=== PATIENT | male | born 1955 | race Caucasian/White ===

== ENCOUNTER → 2020-01-13 13:44 | Outpatient (CLI) | payer MEDICARE, OTHER, SELFPAY ==
--- NOTE | ~2020-01-13 | XR_ITS ---
XR hip BI 2V w AP pelvis DATE: 01/13/2020 14:08 INDICATION: Right hip pain TECHNIQUE: AP pelvis. Bilateral AP and lateral hip views COMPARISON: None FINDINGS: No pelvic fracture or bone destruction. The pubic symphysis and sacroiliac joints are inta ct. No fracture or dislocation, periosteal reaction or bone destruction. Hip joint spaces are symme tric and relatively preserved. IMPRESSION: Scoliosis and degenerative disc disease of the mid to lower lumbar and lumbosacral spine Reviewed, dictated and finalized at location B.
== END ==
PROVIDERS: Visit Provider Internal Medicine
DX: M25.551 Pain in right hip (principal); M41.86 Other forms of scoliosis, lumbar region; M51.37 Other intervertebral disc degeneration, lumbosacral region
CPT/HCPCS: 73521

== ENCOUNTER → 2020-09-08 10:16 | Outpatient (CLI) | payer MEDICARE, OTHER, SELFPAY ==
--- NOTE | ~2020-09-08 | XR_ITS ---
EXAMINATION: XR hand BI arthritis min 3V EXAM DATE: 09/08/2020 10:33 INDICATION: Bilat Hand Joint Pain With Tightness And Swelling For 3 Months. Worse In Right Hand. TECHNIQUE: Right hand frontal, lateral and oblique projections obtained and reviewed. Left hand fron kamran, lateral and oblique projections obtained and reviewed. Catchers projection of both hands. There is no prior study for comparison. FINDINGS: Right hand: Polyarticular primary osteoarthritis, moderate to severe at the 3rd and 5th distal interp halangeal joints. Moderate 1st digit interphalangeal, MCP and 3rd MCP osteoarthritis. Less osteoarthr itis at the other joints. Mild arteriosclerosis. There are no acute fractures identified. There are n o bony erosions identified. Left hand: Polyarticular primary osteoarthritis, moderate to severe at the 4th and 5th distal interph alangeal joints, moderate at the 1st and 2nd distal interphalangeal joints. Otherwise mild polyarticu lar osteoarthritis. Mild arteriosclerosis. There are no acute fractures identified. There are no ga ny erosions identified. IMPRESSION: 1. Polyarticular osteoarthritis, distal interphalangeal joints most affected. Reviewed, dictated and finalized at location A. E ECONOMIST
== END ==
PROVIDERS: PCP Internal Medicine; Visit Provider Internal Medicine
DX: M19.042 Primary osteoarthritis, left hand (principal); M19.041 Primary osteoarthritis, right hand; M18.0 Bilateral primary osteoarthritis of first carpometacarpal joints
CPT/HCPCS: 73130

== ENCOUNTER → 2021-08-09 10:47 | Outpatient (CLI) | payer MEDICARE, OTHER, SELFPAY ==
--- NOTE | ~2021-08-09 | CT_ITS ---
EXAMINATION: CT abdomen pelvis wo/w con DATE: 08/09/2021 11:28 INDICATION: Unspecified abdominal pain TECHNIQUE: Computed tomography (CT) of the abdomen was performed without intravenous contrast. CT of the abdomen and pelvis was then performed with a total of 100 mL Omnipaque 350 intravenous contrast. The dose-length product (DLP) was 1438.47 mGy-cm. Automated exposure control and iterative reconstruc tion technique were employed. COMPARISON: 06/07/2018 FINDINGS: The lung bases are clear. The heart size is normal. The gallbladder is surgically absent. T here is mild enlargement of the common bile duct and central intrahepatic ducts which is likely due t o post cholecystectomy state. The liver, spleen, pancreas, and adrenal glands are normal. Nonobstruct ing stones of the kidneys measure up to 2 mm. No definite stones are identified in the ureters or zachery dder. There is no hydronephrosis or hydroureter. No pathologically enlarged abdominal or pelvic lymph nodes are identified. There is no free intraperitoneal gas or evidence of bowel obstruction. The martine endix is normal. There is severe lumbar spondylosis. IMPRESSION: 1. Punctate bilateral nephrolithiasis without hydronephrosis or hydroureter. No CT correlate for the patient's symptoms. Reviewed, dictated and finalized at location B. ICE MEMBER
[2021-08-09 11:18] LABS: Estimated Glomerular Filt Rate > 60
== END ==
PROVIDERS: Visit Provider Internal Medicine
DX: R10.9 Unspecified abdominal pain (principal); N20.0 Calculus of kidney
CPT/HCPCS: 74178; Q9967

== ENCOUNTER → 2022-02-15 12:07 | Outpatient (CLI) | payer MEDICARE, OTHER, SELFPAY ==
--- NOTE | ~2022-02-15 | MR_ITS ---
EXAMINATION: MR lumbar spine wo con DATE: 02/15/2022 12:43 INDICATION: Low back pain. TECHNIQUE: Magnetic resonance imaging (MRI) of the lumbar spine was performed without intravenous con trast. Sequences included sagittal T2-weighted FSE, sagittal T2-weighted FS FSE, sagittal T1-weighted FSE, and axial T2-weighted FSE. COMPARISON: Lumbar spine MRI 06/24/17 FINDINGS: There is 11 degrees levoscoliosis of lumbar spine. There is 6 mm anterolisthesis of L4 on L 5 and 3 mm retrolisthesis of L5 on S1. There are Schmorl's nodes at multiple levels. There is mildly decreased disc height at L2-L3, moderately decreased disc height at L3-L4, and severely decreased dis c height at L4-L5 and L5-S1 with endplate remodeling. The distal spinal cord signal intensity is norm al. The conus medullaris is at L1. The following disc levels are specifically discussed: L1-L2: The disc is bulging. There is mild bilateral facet joint osteoarthritis. There is mild bilater al neural foraminal stenosis. There is mild central canal stenosis. L2-L3: The disc is bulging and has an annular fissure. There is mild bilateral facet joint osteoarthr itis. There is moderate bilateral neural foraminal stenosis. There is mild central canal stenosis. L3-L4: The disc is bulging and has an annular fissure. There is mild bilateral facet joint osteoarthr itis. There is moderate right and mild left neural foraminal stenosis. There is mild central canal st enosis. L4-L5: The disc is bulging and has an annular fissure. There is severe bilateral facet joint osteoart hritis. There is moderate right and mild left neural foraminal stenosis. There is moderate central ca nal stenosis. L5-S1: The disc is bulging and has an annular fissure. There is moderate right and severe left facet joint osteoarthritis. There is mild right and moderate left neural foraminal stenosis. There is mild central canal stenosis. IMPRESSION: 1. Severe lumbar spondylosis, stable from 06/24/2017. 2. Lumbar levoscoliosis. Reviewed, dictated and finalized at location A.
== END ==
PROVIDERS: PCP Family Medicine; Visit Provider Family Medicine
DX: M54.50 Low back pain, unspecified (principal); G62.9 Polyneuropathy, unspecified; M43.06 Spondylolysis, lumbar region; M41.86 Other forms of scoliosis, lumbar region
CPT/HCPCS: 72148

== ENCOUNTER 2023-09-26 00:06 | Day surgery (SDC) | payer MEDICARE, SELFPAY ==
[2023-07-13 14:21] VITALS: BMI 28.0
--- NOTE | 2023-09-18 10:22 | PC.NURSE ---
Called and updated patient with new procedure dates and times. Patient denies any questions at this time. Patient denies any changes to health history, medications, or allergies at this time.
[2023-09-26 07:29] VITALS: BP 144/92; PULSE 90; RESP 20; TEMP 36; O2SAT 97
[2023-09-26] MEDS: LACTATED RINGERS 1,000 ML 150 ML IV CONT (07:46)
[2023-09-26 07:47] LABS: Glucose Point of Care 116 mg/dl (65-105)
--- NOTE | 2023-09-26 07:50 | WPDANESEPPF ---
Anes - Initial Pre Proc Eval Procedure: Operation Date: 09/26/23 08:30 Proposed Procedures p Esophagogastroduodenoscopy - John Dotson MD Date/Time: 09/26/23 07:50 Surgeon: John Dotson MD Pre Op Diagnosis: Esophageal thickening Patient Data Age: 68 Gender: M Height: 1.78 m Weight: 92.8 kg Last Vital Signs Temp 96.8 F L 09/26/23 07:29 Pulse 90 09/26/23 07:29 Resp 20 09/26/23 07:29 BP 144/92 H 09/26/23 07:29 Pulse Ox 97 09/26/23 07:29 O2 Del Method Room Air 09/26/23 07:29 Allergies Allergy/AdvReac Type Severity Reaction Status Date / Time lisinopril AdvReac Mild Cough Verified 09/26/23 07:28 erythromycin base AdvReac Gastrointestinal Verified 09/26/23 07:28 Upset Home Medications Medication Instructions Recorded Confirmed Type blood sugar diagnostic (True #100 ea 10/19/20 11/05/21 Rx Metrix Glucose Test Strip) blood-glucose meter (True Metrix #1 ea 10/19/20 11/05/21 Rx Air Glucose Meter kit) lancets 30 gauge (TRUEplus Lancets) #100 ea 10/19/20 11/05/21 Rx losartan 25 mg tablet 25 mg PO DAILY #90 tabs 09/03/21 07/13/23 Rx glipizide 2.5 mg tablet, extended 2.5 mg PO DAILY #90 tabs 11/05/21 07/13/23 Rx release 24 hr hydrochlorothiazide 12.5 mg tablet 12.5 mg PO DAILY #90 tabs 11/05/21 07/13/23 Rx amlodipine 10 mg tablet 10 mg PO DAILY 07/13/23 07/13/23 History atorvastatin 40 mg tablet 40 mg PO DAILY 07/13/23 07/13/23 History duloxetine 30 mg capsule,delayed 30 mg PO HS 07/13/23 07/13/23 History release gabapentin 100 mg capsule 300 mg PO QHS 07/13/23 07/13/23 History Laboratory Tests 09/26/23 07:37 POC Capillary Glucose 116 H mg/dl (65-105) Patient hx anesthesia problems: none Family hx anesthesia problems: none Results Review: All pre-operative results and documents have been reviewed as part of the pre-operative evaluation. [facility] Past Medical History Medical History (Updated 11/05/21 @ 09:36 by Valentin RainMD) COVID-19 vaccine series started Rotator cuff arthropathy of right shoulder Surgical History Surgical History (Updated 11/05/21 @ 09:20 by Valentin RainMD) History of total right knee replacement Family History Family History Mother Family history of heart disease in male family member before age 55 Patient's mother is Hypertension Sibling Hypertension Carcinoma of colon Father Family history of throat cancer Social History Social History Smoking status: Former smoker Tobacco type: cigarettes Second hand tobacco smoke exposure: No Alcohol intake: never Substance use: never Substance use type: does not use Living arrangements: with family Spiritual care concerns: No Anes - Eval Final PreProcedure Day of Procedure 09/26/23 07:50 Patient weight: normal Heart: regular rate and rhythm Lungs: clear to auscultation Airway: Mallampati scale class II Neurological: alert and oriented Last oral intake: >/= 8 hours ASA classification: III Emergent: no Anesthetic plan: proceed Anesthesia type and monitoring: general GIVS and standard monitoring Results Review: All pre-operative results and documents have been reviewed as part of the pre-operative evaluation. Informed Consent: The patient's anesthetic plan and its attendant risks and benefits were discussed with the patient/family/POA. Questions were solicited and answers provided to the satisfaction of the patient/family/POA.
--- NOTE | 2023-09-26 08:25 | PM.HPGS ---
History of Present Illness History of Present Illness Consent: Risks, benefits, and alternatives have been discussed and questions answered. Patient agrees to proceed with procedure. Chief complaint: Esophageal thickening Narrative: Darshan Contreras is a 68 year old male with prostate issues and had recent imaging that showed thickening of esophagus, at times he noted that food will take some time to go down, had EGD but several years ago. Review of Systems Review of Systems: All systems reviewed & are unremarkable except as noted in HPI and below PMFSH Past Medical History Medical History (Updated 09/26/23 @ 08:27 by John Dotson MD) Abnormal CT scan, esophagus COVID-19 vaccine series started Rotator cuff arthropathy of right shoulder Surgical History Surgical History (Updated 11/05/21 @ 09:20 by Valentin RainMD) History of total right knee replacement Family History Family History Mother Family history of heart disease in male family member before age 55 Patient's mother is Hypertension Sibling Hypertension Carcinoma of colon Father Family history of throat cancer Social History Social History Smoking status: Former smoker Tobacco type: cigarettes Second hand tobacco smoke exposure: No Alcohol intake: never Substance use: never Substance use type: does not use Living arrangements: with family Spiritual care concerns: No Meds Home Medications and Allergies Home Medications Medication Instructions Recorded Confirmed Type blood sugar diagnostic (True #100 ea 10/19/20 11/05/21 Rx Metrix Glucose Test Strip) blood-glucose meter (True Metrix #1 ea 10/19/20 11/05/21 Rx Air Glucose Meter kit) lancets 30 gauge (TRUEplus Lancets) #100 ea 10/19/20 11/05/21 Rx losartan 25 mg tablet 25 mg PO DAILY #90 tabs 09/03/21 07/13/23 Rx glipizide 2.5 mg tablet, extended 2.5 mg PO DAILY #90 tabs 11/05/21 07/13/23 Rx release 24 hr hydrochlorothiazide 12.5 mg tablet 12.5 mg PO DAILY #90 tabs 11/05/21 07/13/23 Rx amlodipine 10 mg tablet 10 mg PO DAILY 07/13/23 07/13/23 History atorvastatin 40 mg tablet 40 mg PO DAILY 07/13/23 07/13/23 History duloxetine 30 mg capsule,delayed 30 mg PO HS 07/13/23 07/13/23 History release gabapentin 100 mg capsule 300 mg PO QHS 07/13/23 07/13/23 History Allergies Allergy/AdvReac Type Severity Reaction Status Date / Time lisinopril AdvReac Mild Cough Verified 09/26/23 07:28 erythromycin base AdvReac Gastrointestinal Verified 09/26/23 07:28 Upset Vital Signs Vital Signs - 24 hr 09/26/23 07:29 Temperature 96.8 F L Pulse Rate 90 Respiratory Rate 20 Blood Pressure 144/92 H Pulse Oximetry 97 Oxygen Delivery Room Air Exam Const: General: comfortable and no acute distress HENMT: Face/Nose/Sinus: Normal nares present Eyes: General: appearance normal, both eyes and all related structures Neck: Neck: no JVD Resp: Auscultation: clear to auscultation bilaterally Cardio: Rate: regular rate Rhythm: regular rhythm GI: Inspection: non-distended GI Palp: Yes Soft to palpation Skin: General skin exam: normal color Neuro: General: gait normal Speech: normal speech Extrem: General: normal to inspection Psych: Mental Status: mental status grossly normal Assessment and Plan Assessment and plan (1) Abnormal CT scan, esophagus: Code(s): R93.3 - Abnormal findings on diagnostic imaging of other parts of digestive tract Status: Acute Assessment and Plan: egd
[2023-09-26 08:42] VITALS: BP 115/76; PULSE 83; RESP 21; O2SAT 97
[2023-09-26 08:52] VITALS: BP 128/87; PULSE 78; RESP 17; O2SAT 97
[2023-09-26 09:02] VITALS: BP 141/85; PULSE 74; RESP 18; O2SAT 99
== END 2023-09-26 09:11 | disposition home or self-care (01) ==
PROVIDERS: PCP Family Medicine; Visit Provider Internal Medicine Gastroenterology
PROC: 0DJ08ZZ Inspection of Upper Intestinal Tract, Via Natural or Artificial Opening Endoscopic (ICD-10-PCS; CPT 43235; principal; 2023-09-26 08:30)
DX: R93.3 Abnormal findings on diagnostic imaging of other parts of digestive tract (principal); Z79.84 Long term (current) use of oral hypoglycemic drugs; Z87.891 Personal history of nicotine dependence
CPT/HCPCS: 43235; 82948; J2704; J7120

== ENCOUNTER 2024-05-20 00:16 | Day surgery (SDC) | payer MEDICARE, SELFPAY ==
[2024-05-08 14:34] VITALS: BMI 28.8
[2024-05-20 09:05] VITALS: BP 146/83; PULSE 93; RESP 18; TEMP 36.1; O2SAT 98
[2024-05-20 09:15] LABS: Glucose Point of Care 124 mg/dl (65-105)
[2024-05-20] MEDS: LACTATED RINGERS 1,000 ML 150 ML IV CONT (09:15)
--- NOTE | 2024-05-20 09:39 | PM.HPGS ---
History of Present Illness History of Present Illness Consent: Risks, benefits, and alternatives have been discussed and questions answered. Patient agrees to proceed with procedure. Chief complaint: fecal abnormalities Narrative: Darshan Contreras is a 68 year old male here for colonoscopy, last one 2018, brother had colon cancer. Also had + FOBT Review of Systems Review of Systems: All systems reviewed & are unremarkable except as noted in HPI and below PMFSH Past Medical History Medical History Abnormal CT scan, esophagus COVID-19 vaccine series started Diabetes mellitus History of prostate cancer Hypertension Mixed hyperlipidemia Rotator cuff arthropathy of right shoulder Surgical History Surgical History History of total right knee replacement Family History Family History Mother Family history of heart disease in male family member before age 55 Patient's mother is Hypertension Sibling Hypertension Carcinoma of colon Father Family history of throat cancer Social History Social History Smoking status: Never smoker Tobacco type: cigarettes Second hand tobacco smoke exposure: No Alcohol intake: never Substance use: never Substance use type: does not use Living arrangements: with family Spiritual care concerns: No Meds Home Medications and Allergies Home Medications Medication Instructions Recorded Confirmed Type blood sugar diagnostic (True #100 ea 10/19/20 11/05/21 Rx Metrix Glucose Test Strip) blood-glucose meter (True Metrix #1 ea 10/19/20 11/05/21 Rx Air Glucose Meter kit) lancets 30 gauge (TRUEplus Lancets) #100 ea 10/19/20 11/05/21 Rx losartan 25 mg tablet 25 mg PO DAILY #90 tabs 09/03/21 05/20/24 Rx glipizide 2.5 mg tablet, extended 2.5 mg PO DAILY #90 tabs 11/05/21 05/20/24 Rx release 24 hr hydrochlorothiazide 12.5 mg tablet 12.5 mg PO DAILY #90 tabs 11/05/21 05/20/24 Rx amlodipine 10 mg tablet 10 mg PO DAILY 07/13/23 05/20/24 History atorvastatin 40 mg tablet 40 mg PO DAILY 07/13/23 05/20/24 History gabapentin 100 mg capsule 300 mg PO QHS 07/13/23 05/20/24 History cholecalciferol (vitamin D3) 125 125 mcg PO DAILY 05/08/24 05/20/24 History mcg (5,000 unit) tablet (Vitamin D3) gabapentin 100 mg capsule 100 mg PO DAILY 05/08/24 05/20/24 History tramadol 50 mg tablet 50 mg PO DAILY PRN Pain 05/08/24 05/20/24 History Allergies Allergy/AdvReac Type Severity Reaction Status Date / Time lisinopril AdvReac Mild Cough Verified 05/20/24 09:03 erythromycin base AdvReac Gastrointestinal Verified 05/20/24 09:03 Upset Vital Signs Vital Signs - 24 hr 05/20/24 09:05 Temperature 97 F L Pulse Rate 93 Respiratory Rate 18 Blood Pressure 146/83 H Pulse Oximetry 98 Oxygen Delivery Room Air Exam Const: General: comfortable and no acute distress HENMT: Face/Nose/Sinus: Normal nares present Eyes: General: appearance normal, both eyes and all related structures Neck: Neck: no JVD Resp: Auscultation: clear to auscultation bilaterally Cardio: Rate: regular rate Rhythm: regular rhythm GI: Inspection: non-distended GI Palp: Yes Soft to palpation Skin: General skin exam: normal color Neuro: General: gait normal Speech: normal speech Extrem: General: normal to inspection Psych: Mental Status: mental status grossly normal Assessment and Plan Assessment and plan (1) FHx: colon cancer: Code(s): Z80.0 - Family history of malignant neoplasm of digestive organs Status: Acute Assessment and Plan: colonoscopy
--- NOTE | 2024-05-20 09:39 | WPDANESEPPF ---
Anes - Initial Pre Proc Eval Procedure: Operation Date: 05/20/24 10:30 Proposed Procedures p Colonoscopy - John Dotson MD Date/Time: 05/20/24 09:39 Surgeon: John Dotson MD Pre Op Diagnosis: fecal abnormalities Patient Data Age: 68 Gender: M Height: 1.78 m Weight: 89.3 kg Last Vital Signs Temp 36.1 C L 05/20/24 09:05 Pulse 93 05/20/24 09:05 Resp 18 05/20/24 09:05 BP 146/83 H 05/20/24 09:05 Pulse Ox 98 05/20/24 09:05 O2 Del Method Room Air 05/20/24 09:05 Allergies Allergy/AdvReac Type Severity Reaction Status Date / Time lisinopril AdvReac Mild Cough Verified 05/20/24 09:03 erythromycin base AdvReac Gastrointestinal Verified 05/20/24 09:03 Upset Home Medications Medication Instructions Recorded Confirmed Type blood sugar diagnostic (True #100 ea 10/19/20 11/05/21 Rx Metrix Glucose Test Strip) blood-glucose meter (True Metrix #1 ea 10/19/20 11/05/21 Rx Air Glucose Meter kit) lancets 30 gauge (TRUEplus Lancets) #100 ea 10/19/20 11/05/21 Rx losartan 25 mg tablet 25 mg PO DAILY #90 tabs 09/03/21 05/20/24 Rx glipizide 2.5 mg tablet, extended 2.5 mg PO DAILY #90 tabs 11/05/21 05/20/24 Rx release 24 hr hydrochlorothiazide 12.5 mg tablet 12.5 mg PO DAILY #90 tabs 11/05/21 05/20/24 Rx amlodipine 10 mg tablet 10 mg PO DAILY 07/13/23 05/20/24 History atorvastatin 40 mg tablet 40 mg PO DAILY 07/13/23 05/20/24 History gabapentin 100 mg capsule 300 mg PO QHS 07/13/23 05/20/24 History cholecalciferol (vitamin D3) 125 125 mcg PO DAILY 05/08/24 05/20/24 History mcg (5,000 unit) tablet (Vitamin D3) gabapentin 100 mg capsule 100 mg PO DAILY 05/08/24 05/20/24 History tramadol 50 mg tablet 50 mg PO DAILY PRN Pain 10/30/24 11/11/24 History Laboratory Tests 05/20/24 09:13 POC Capillary Glucose 124 H mg/dl (65-105) Patient hx anesthesia problems: none Family hx anesthesia problems: none Results Review: All pre-operative results and documents have been reviewed as part of the pre-operative evaluation. [facility] Past Medical History Medical History Abnormal CT scan, esophagus COVID-19 vaccine series started Diabetes mellitus History of prostate cancer Hypertension Mixed hyperlipidemia Rotator cuff arthropathy of right shoulder Surgical History Surgical History History of total right knee replacement Family History Family History Mother Family history of heart disease in male family member before age 55 Patient's mother is Hypertension Sibling Hypertension Carcinoma of colon Father Family history of throat cancer Social History Social History Smoking status: Never smoker Tobacco type: cigarettes Second hand tobacco smoke exposure: No Alcohol intake: never Substance use: never Substance use type: does not use Living arrangements: with family Spiritual care concerns: No Anes - Eval Final PreProcedure Day of Procedure 05/20/24 09:39 Patient weight: overweight Heart: regular rate and rhythm Lungs: clear to auscultation Airway: Mallampati scale class II Last oral intake: >/= 8 hours ASA classification: III Emergent: no Anesthetic plan: proceed Anesthesia type and monitoring: general GIVS Results Review: All pre-operative results and documents have been reviewed as part of the pre-operative evaluation. Informed Consent: The patient's anesthetic plan and its attendant risks and benefits were discussed with the patient/family/POA. Questions were solicited and answers provided to the satisfaction of the patient/family/POA.
[2024-05-20 09:59] VITALS: BP 110/73; PULSE 80; RESP 17; O2SAT 96
[2024-05-20 10:09] VITALS: BP 110/69; PULSE 73; RESP 18; O2SAT 95
[2024-05-20 10:19] VITALS: BP 122/77; PULSE 71; RESP 20; O2SAT 98
== END 2024-05-20 10:33 | disposition home or self-care (01) ==
PROVIDERS: PCP Family Medicine; Visit Provider Internal Medicine Gastroenterology
PROC: 0DJD8ZZ Inspection of Lower Intestinal Tract, Via Natural or Artificial Opening Endoscopic (ICD-10-PCS; CPT 45378; principal; 2024-05-20 10:30)
DX: R19.5 Other fecal abnormalities (principal); D12.2 Benign neoplasm of ascending colon; D12.3 Benign neoplasm of transverse colon; K64.8 Other hemorrhoids; Z80.0 Family history of malignant neoplasm of digestive organs; E11.9 Type 2 diabetes mellitus without complications; I10 Essential (primary) hypertension; E78.2 Mixed hyperlipidemia; Z85.46 Personal history of malignant neoplasm of prostate; Z79.84 Long term (current) use of oral hypoglycemic drugs
CPT/HCPCS: 45385; 82948; 88305; J2704; J7120